=== PATIENT | female | born 1935 | race Caucasian/White ===

== ENCOUNTER → 2016-08-31 | Outpatient (CLI) | payer MEDICARE ==
[~2016-08-31] MED LIST: CALTRATE-600 W600 MG PO; COLACE-DPS100 MG PO; FEMARA DPS2.5 MG PO; HYDROCODONE 5MG/5 MG PO; LUTEIN6 M1 PO; MAALOX DPS30 ML PO; NITROSTAT0.4 MG SL; ONE DAILY FOR1 EAC3 PO; TOPROL XL DPS50 MG PO; TYLENOL DPS325 MG PO
== END | disposition home or self-care (01) ==
LOC: RAD.S 08:19
DX: Z12.31 Encounter for screening mammogram for malignant neoplasm of breast (principal); Z98.890 Other specified postprocedural states